=== PATIENT | male | born 1980 | race Caucasian/White ===

== ENCOUNTER 2022-02-14 16:51 | Emergency (ER) | payer SELFPAY ==
[~2022-02-14] VITALS: Ht 167.6 cm; Wt 77.1 kg
--- NOTE | 2022-02-14 16:55 | NUR ---
Patient to ER bed 05 to gown for evaluation. Side rails up.
[2022-02-14 16:57] VITALS: BP_SYST 171
--- NOTE | 2022-02-14 17:30 | NUR ---
MD ACOSTA AT BEDSIDE FOR ASSESS. VSS. NAD NOTED. IN CUSTODY WITH [place] [employer]. WILL CONT TO MONITOR PT. AWAITING ADDITIONAL ORDERS. PER MD ACOSTA, NO UDS NEEDED, JUST LABS AND COVID SWAB.
--- NOTE | 2022-02-14 18:08 | NUR ---
COVID SPECIMEN SENT TO LAB AT 17:12.
[2022-02-14 18:12] LABS: BASOPHILS % (AUTO) 0.6 % (0.0-2.0); EOSINOPHILS # (AUTO) 0.1 K/uL (0.0-0.4); EOSINOPHILS % (AUTO) 1.2 % (0.0-4.0); HEMATOCRIT 41.6 % (36-54); HEMOGLOBIN 14.1 g/dL (14.0-18.0); LYMPHOCYTES # (AUTO) 1.1 K/uL (1.0-5.5); LYMPHOCYTES % (AUTO) 14.8 % (20.5-51.5); MEAN CORPUSCULAR HEMOGLOBIN 30 pg (27-31); MEAN CORPUSCULAR HGB CONC 34 % (32-36); MEAN CORPUSCULAR VOLUME 89 fL (79.0-98.0); MONOCYTES # (AUTO) 0.7 K/uL (0.0-1.0); MONOCYTES % (AUTO) 9.1 % (1.7-9.3); NEUTROPHILS # (AUTO) 5.6 K/uL (1.8-7.7); NEUTROPHILS % (AUTO) 74.3 % (40.0-70.0); PLATELET COUNT (AUTO) 252 K/uL (130-430); RED BLOOD CELL COUNT(AUTO) 4.69 MIL/uL (4.2-6.2); RED CELL DISTRIBUTION WIDTH 13.6 % (9.0-15.0); WHITE BLOOD COUNT (AUTO) 7.5 K/uL (4.8-10.8)
[2022-02-14 18:24] LABS: ANION GAP 9 (5-15); CALCIUM 9.6 mg/dL (8.4-11.0); CHLORIDE 105 mmol/L (98-107); CREATININE 1.23 mg/dL (0.55-1.30); GLUCOSE 108 mg/dL (70-99); POTASSIUM 3.9 mmol/L (3.5-5.1); SODIUM SERUM 141 mmol/L (136-145); UREA NITROGEN, BLOOD 11 mg/dL (8-21)
[2022-02-14 18:29] LABS: ALANINE AMINOTRANSFERASE 23 U/L (12-78); ALBUMIN 4.1 g/dL (3.4-4.8); ASPARTATE AMINOTRANSFERASE 23 U/L (10-37); TOTAL BILIRUBIN 0.4 mg/dL (0.0-1.0)
[2022-02-14 18:33] LABS: ACETAMINOPHEN < 1 ug/mL (1-30); ALCOHOL, BLOOD < 3 mg/dL (<10); GFR AFRICAN AMERICAN 83 mL/min (>90)
--- NOTE | 2022-02-14 19:15 | NUR ---
DIPTI RN REPORT FROM THEA SANTIZO. PT PENDING OK TO BOOK FOR [employer] [employer]. S/P TAKE DOWN WITH TAZER WITHOUT SKIN CONTACT. PT A/O X4 CLEAR SPEECH. PT NON COOPERATIVE, SPIT SOCK IN PLACE
--- NOTE | 2022-02-14 19:17 | NUR ---
CARE ENDORSED TO THEA HANEY. PT VSS. NAD NOTED. AWAITING LAB RESULTS FOR OK TO BOOK. [place] [employer] AT BEDSIDE WITH PATIENT IN [place]FFS IN CUSTODY. END OF CARE.
--- NOTE | 2022-02-14 19:51 | NUR ---
PT D/C I CUSTODY OF [place] [employer] OFFICER MARIA FERNANDA #[id number]. PT OK TO BOOK BY DR. ACOSTA. TO AMB EXIT IN HANDCUFFS AMB WITH OFFICER. VSS. PT STABLE FOR DISCHARGE
[2022-02-14 19:53] VITALS: BP_SYST 120
== END 2022-02-14 19:53 | disposition home or self-care (01) ==
LOC: SED 16:51
DX: Z02.89 Encounter for other administrative examinations (principal); I10 Essential (primary) hypertension; Z20.822 Contact with and (suspected) exposure to COVID-19; Z79.899 Other long term (current) drug therapy
CPT/HCPCS: 99284; 87426; 80053; 85025; 36415; 93005; G0480; G0481; G0482